=== PATIENT | male | born 1985 | race Caucasian/White ===

== ENCOUNTER 2019-09-24 13:06 | Emergency (ER) | payer MEDICAID, OTHER ==
[~2019-09-24] VITALS: Ht 170.2 cm; Wt 113.6 kg
[~2019-09-24 13:06] MED LIST: IBUP-1986 PO; NAPR-996 PO; NO HOME MEDS
[2019-09-24] MEDS ORDERED: ketorolac trometh. 30mg/ml inj. IM ONE (13:25)
[2019-09-24 14:43] VITALS: BP 143/91
== END 2019-09-24 14:44 | disposition home or self-care (01) ==
LOC: ER 13:06
DX: S93.401A Sprain of unspecified ligament of right ankle, initial encounter (principal); Z79.899 Other long term (current) drug therapy; X50.1XXA Overexertion from prolonged static or awkward postures, initial encounter; Y93.89 Activity, other specified; Y92.89 Other specified places as the place of occurrence of the external cause; Y99.8 Other external cause status
CPT/HCPCS: 73610; 73630; 96372; 99284; J1885

== ENCOUNTER 2020-07-01 13:19 | Emergency (ER) | payer MEDICAID ==
[~2020-07-01] VITALS: Ht 170.2 cm; Wt 106.8 kg
[2020-07-01 13:21] VITALS: BP 137/105
== END 2020-07-01 13:48 | disposition home or self-care (01) ==
LOC: ER 13:20
DX: R06.02 Shortness of breath (principal); Z20.828 Contact with and (suspected) exposure to other viral communicable diseases; Z86.711 Personal history of pulmonary embolism; Z79.899 Other long term (current) drug therapy
CPT/HCPCS: 99281